=== PATIENT | female | born 1935 | race Caucasian/White ===

== ENCOUNTER 2017-04-01 09:52 | Inpatient (IN) | payer OTHER ==
[2017-04-01] VITALS (12 sets, daily range): BP systolic 87–129; BP diastolic 41–92
[~2017-04-01] VITALS: Ht 157.5 cm; Wt 86.0 kg
--- NOTE | ~2017-04-01 | HC ---
[facility] [place] [address] CONSULTATION Name: JUAN FRANCISCO SYED Room #: 426-P [facility] [place] M.R.#: [id number] Admission: 04/01/17 Attend Phys: Pritesh Wylie Discharge: 04/04/17 Date of : 35 Report #: [id number] THIS REPORT FOR: //name// CC: FAM unknown Pritesh Wylie MD DATE OF SERVICE: 04/01/2017 DATE OF SERVICE: 04/01/2017. HISTORY OF PRESENT ILLNESS: The patient is an 81-year-old female with a 2-day history of some bright red blood per rectum. She denies any abdominal pain. She apparently had an EGD and colonoscopy in August of this year in [place], [place] and was noted to have hemorrhoids. She does take Xarelto for previous history of pulmonary embolus. She denies any bowel movements today. She denies any abdominal pain. She denies any nausea, vomiting or hematemesis. Her hemoglobin here is 10.6. Her blood thinners have been stopped at this time. PAST MEDICAL HISTORY: History of COPD, chronic renal disease, history of DVT and PE and gastroesophageal reflux disease. MEDICATIONS ON ADMISSION: Xarelto, K-Dur, Cozaar, Coreg, Zocor, Protonix, Lasix, clonazepam, Neurontin, and Ventolin inhaler. SOCIAL HISTORY: She denies any tobacco or alcohol use. REVIEW OF SYSTEMS: As per HPI. FAMILY HISTORY: Negative for colon cancer. PHYSICAL EXAMINATION: VITAL SIGNS: Temperature is 98.8, pulse 79, blood pressure 129/59, and respiratory rate is 16. GENERAL: She is alert and oriented x 3 in no acute distress. HEENT: Sclerae nonicteric. Oropharynx clear. NECK: Supple, without lymphadenopathy. CARDIOVASCULAR: Regular rate and rhythm. CHEST: Clear to auscultation bilaterally. ABDOMEN: Soft. She is nontender, nondistended, normoactive bowel sounds. EXTREMITIES: No cyanosis, clubbing or edema. LABORATORY DATA: The only labs here are hemoglobin at 10.6 with a hematocrit of 31.2. Labs per primary's note show a platelet count of 241, BUN 43, creatinine 2.26. [address] [address] CONSULTATION Name: JUAN FRANCISCO SYED Room #: 426-P [facility] [place] ..#: [id number] Admission: 04/01/17 Attend Phys: Pritesh Wylie Discharge: 04/04/17 Date of : 35 Report #: [id number] ASSESSMENT AND PLAN: Recent bright red blood per rectum. The patient transferred from [facility]. She had a colonoscopy and EGD reportedly in [place], [place]. I would like to review these results before repeating the endoscopy. She does have a known history of hemorrhoids. Obviously, this could be the source. She has been on Xarelto. This has been held at this time. We would continue to monitor her hemoglobin closely. Once we can review what was seen on colonoscopy, we can determine if repeat flexible sigmoidoscopy or other studies such as an M2 capsule would be needed. We will continue to follow. Thank you for allowing me to participate in her care. <ELECTRONICALLY SIGNED> By: Wenceslao Mae MD 04/05/17 1013 [id number] 1942 Wenceslao Mae MD /nt
[2017-04-01] MEDS ORDERED: XARELTO20 MG PO (11:09)
[2017-04-01] MEDS ORDERED: COZAAR 50 MG TA50 M2 PO (11:10)
[2017-04-01] MEDS ORDERED: POTASSIUM20 PO (11:10)
[2017-04-01] MEDS ORDERED: ZOCOR20 MG PO (11:11)
[2017-04-01] MEDS ORDERED: COREG6.25 MG PO (11:11)
[2017-04-01] MEDS ORDERED: PROTONIX40 M1 PO (11:13)
[2017-04-01] MEDS ORDERED: LASIX 80 MG TAB80 MG PO (11:13)
[2017-04-01] MEDS ORDERED: LASIX 40 MG TAB40 M2 PO (11:13)
[2017-04-01] MEDS ORDERED: CLONAZEPAM 1 MG1 M1 PO (11:14)
[2017-04-01] MEDS ORDERED: GABAPENTIN 100100 MG PO (11:14)
[2017-04-01] MEDS ORDERED: VENTOLIN HFA 1818 GM INH (11:15)
[2017-04-01 12:09] LABS: HEMATOCRIT 31.2 % (37.0-47.0); HEMOGLOBIN 10.6 gm/dL (12.0-15.0)
[2017-04-01 17:22] LABS: HEMATOCRIT 28.9 % (37.0-47.0); HEMOGLOBIN 9.9 gm/dL (12.0-15.0)
[2017-04-01 20:01] LABS: HEMATOCRIT 28.8 % (37.0-47.0)
[2017-04-02] VITALS (7 sets, daily range): BP systolic 90–115; BP diastolic 50–82
[2017-04-02 05:09] LABS: HEMATOCRIT 25.9 % (37.0-47.0); HEMOGLOBIN 8.8 gm/dL (12.0-15.0)
[2017-04-02 05:27] LABS: ALBUMIN 2.1 g/dL (3.4-5.0); CALCIUM 7.5 mg/dL (8.5-10.1); CREATININE 1.3 mg/dL (0.6-1.0); PHOSPHORUS 4.2 mg/dL (2.5-4.9); POTASSIUM 3.4 mmol/L (3.5-5.1)
[2017-04-03 04:59] LABS: HEMATOCRIT 25.3 % (37.0-47.0); HEMOGLOBIN 8.6 gm/dL (12.0-15.0); MCH 34.5 pg (26.0-34.0); MCV 101.6 fL (80.0-100.0); RBC 2.48 mil/uL (4.20-5.00); RDW 12.4 % (10.5-14.5); WBC 4.7 thou/uL (4.0-11.0)
[2017-04-03 05:19] LABS: ANION GAP 6 mmol/L (7-16); BUN 13 mg/dL (7-18); CALCIUM 7.9 mg/dL (8.5-10.1); CHLORIDE 113 mmol/L (98-107); CO2 25 mmol/L (21-32); CREATININE 0.9 mg/dL (0.6-1.0); GLUCOSE 89 mg/dL (74-106); PHOSPHORUS 3.1 mg/dL (2.5-4.9); POTASSIUM 3.9 mmol/L (3.5-5.1); SODIUM 144 mmol/L (136-145); TROPONIN-I < 0.04 ng/mL (<0.04-0.07)
[2017-04-03 08:00] VITALS: BP 131/56
[2017-04-03 12:00] VITALS: BP 116/39
[2017-04-03 16:00] VITALS: BP 131/53
[2017-04-03 20:01] VITALS: BP 145/60
[2017-04-04 00:16] VITALS: BP 129/52
[2017-04-04 04:37] VITALS: BP 116/63
[2017-04-04 05:37] LABS: HEMATOCRIT 25.1 % (37.0-47.0); HEMOGLOBIN 8.6 gm/dL (12.0-15.0); MCH 34.5 pg (26.0-34.0); MCHC 34.2 g/dL (28.0-37.0); MCV 100.9 fL (80.0-100.0); RBC 2.49 mil/uL (4.20-5.00); RDW 12.4 % (10.5-14.5); WBC 4.7 thou/uL (4.0-11.0)
[2017-04-04 08:08] VITALS: BP 126/53
[2017-04-04 12:58] VITALS: BP 126/53
== END 2017-04-04 13:41 | disposition home or self-care (01) | DRG 377 ==
LOC: 4S 09:52 → ICU 10:59 → 4S 11:23 → ICU 19:45 → 4E 04-03 18:15
PROVIDERS: Hospitalist; Specialist
PROC: 0W3P8ZZ Control Bleeding in Gastrointestinal Tract, Via Natural or Artificial Opening Endoscopic (ICD-10-PCS; principal; 2017-04-01)
PROC: 0DJD8ZZ Inspection of Lower Intestinal Tract, Via Natural or Artificial Opening Endoscopic (ICD-10-PCS; principal; 2017-04-01)
DX: K57.31 Diverticulosis of large intestine without perforation or abscess with bleeding (principal); E43 Unspecified severe protein-calorie malnutrition; N17.9 Acute kidney failure, unspecified; K92.2 Gastrointestinal hemorrhage, unspecified; J44.9 Chronic obstructive pulmonary disease, unspecified; K21.9 Gastro-esophageal reflux disease without esophagitis; N18.2 Chronic kidney disease, stage 2 (mild); D64.9 Anemia, unspecified; Z68.34 Body mass index [BMI] 34.0-34.9, adult; Z86.718 Personal history of other venous thrombosis and embolism; Z86.711 Personal history of pulmonary embolism; Z88.8 Allergy status to other drugs, medicaments and biological substances; Z88.6 Allergy status to analgesic agent; Z88.0 Allergy status to penicillin; Z88.2 Allergy status to sulfonamides
CPT/HCPCS: 10078; 10783